=== PATIENT | female | born 1950 | race Hispanic/Latino ===

== ENCOUNTER 2018-03-23 15:15 | Emergency (ER) | payer MEDICARE, OTHER ==
[2018-03-23 15:16] VITALS: BMI 31.2
--- NOTE | 2018-03-23 16:41 | C.PDOC ---
History Of Present Illness 67 y/o female presents to the ED complaining of right arm injury, sustained today. Patient states she was hit by a door unintentionally injuring the right arm and shoulder. No LOC. Patient is right hand dominant. Now complaining of pain when moving the right arm. No other injury. Denies history of blood thinner use. Time Seen by Provider: 03/23/18 15:57 Chief Complaint (Nursing): Upper Extremity Problem/Injury History Per: Patient History/Exam Limitations: no limitations Onset/Duration Of Symptoms: Hrs Current Symptoms Are (Timing): Still Present Past Medical History Reviewed: Historical Data, Nursing Documentation, Vital Signs Vital Signs: Last Vital Signs Temp 98.0 F 03/23/18 17:48 Pulse 74 03/23/18 17:48 Resp 18 03/23/18 17:48 BP 144/72 03/23/18 17:48 Pulse Ox 98 03/23/18 17:48 - Medical History PMH: Arthritis, HTN, Parkinson's Disease Denies: Diabetes, Hepatitis, HIV, Chronic Kidney Disease, Seizures, Sexually Transmitted Disease Surgical History: Back Surgery (L5-L^ fusion) Family History: States: Unknown Family Hx - Social History Hx Tobacco Use: No Hx Alcohol Use: No Hx Substance Use: No - Immunization History Hx Tetanus Toxoid Vaccination: Yes Hx Influenza Vaccination: No Hx Pneumococcal Vaccination: No Review Of Systems Except As Marked, All Systems Reviewed And Found Negative. Musculoskeletal: Positive for: Arm Pain Physical Exam - Physical Exam Appears: Non-toxic, No Acute Distress Skin: Normal Color, Warm, Dry Head: Atraumatic, Normacephalic Eye(s): bilateral: Normal Inspection, PERRL, EOMI Neck: Normal ROM Chest: Symmetrical Cardiovascular: Rhythm Regular Respiratory: No Accessory Muscle Use Extremity: Tenderness (to right lateral shoulder and humerus), No Deformity, No Swelling, Other (Neurovascularly intact) Pulses: Left Radial: Normal, Right Radial: Normal Neurological/Psych: Oriented x3, Normal Speech, Normal Motor, Normal Sensation ED Course And Treatment O2 Sat by Pulse Oximetry: 97 (RA) Pulse Ox Interpretation: Normal Medical Decision Making Medical Decision Making: Impression: Right arm injury Plan: --Tylenol 975 mg PO --Tramadol 50 mg PO --X-ray right humerus --X-ray right shoulder Preliminary x-ray readings are negative. Patient is stable for d/c home. Advised to follow up with PMD in 1-2 days. Disposition Counseled Patient/Family Regarding: Studies Performed, Diagnosis, Need For Followup - Disposition Referrals: Melissa Kincaid MD [Staff Provider] - Disposition: HOME/ ROUTINE Disposition Time: 17:41 Condition: STABLE Additional Instructions: follow up with your doctor in 2 days call to make an appointment take medications as prescribed return to ER if symptoms worsens or progress Instructions: Contusion (DC) Forms: [facility] (Korean), General Discharge Instructions - Clinical Impression Clinical Impression: Contusion - Scribe Statement The provider has reviewed the documentation as recorded by the Scribe (Fransisca Franklin) Provider Attestation: All medical record entries made by the Scribe were at my direction and personally dictated by me. I have reviewed the chart and agree that the record accurately reflects my personal performance of the history, physical exam, medical decision making, and the department course for this patient. I have also personally directed, reviewed, and agree with the discharge instructions and disposition.
[2018-03-23 17:49] VITALS: BP 144/72; PULSE 74; RESP 18; TEMP 98
--- NOTE | 2018-03-23 18:17 | RAD ---
PROCEDURE: Radiographs of the Right Shoulder HISTORY: fall COMPARISON: No prior. FINDINGS: BONES: Normal. No fracture. JOINTS: Normal. Glenohumeral and acromioclavicular joints preserved. No osteoarthritis. SOFT TISSUES: Normal. OTHER FINDINGS: Pacemaker battery pack overlies portions of the right pedro thorax. 1 of the battery leads identified extending cephalad, the tip is not seen. IMPRESSION: No evidence of acute shoulder pathology. Battery pacemaker wire extending into the neck. This is incompletely visualized. Further evaluation therefore may be indicated.
--- NOTE | 2018-03-23 18:17 | RAD ---
PROCEDURE: Radiographs of the right humerus. HISTORY: fall COMPARISON: None. FINDINGS: BONES: Normal. No fracture or focal lesion. SOFT TISSUES: Normal. OTHER FINDINGS: None. IMPRESSION: No acute findings related to/accounting for the clinical presentation.
[2018-03-23 18:33] VITALS: O2SAT 97
== END 2018-03-23 17:56 | disposition home or self-care (01) ==
LOC: C.ER 15:15
DX: S40.011A Contusion of right shoulder, initial encounter (principal); W22.8XXA Striking against or struck by other objects, initial encounter; Y92.9 Unspecified place or not applicable

== ENCOUNTER 2019-02-15 05:28 | Emergency (ER) | payer MEDICARE, OTHER ==
[2019-02-15 05:28] VITALS: BMI 31.2
--- NOTE | 2019-02-15 05:46 | C.PDOC ---
History Of Present Illness pt with advanced parkinson and a brain stimulator for it has had increased falls. She states she had about 11 falls since yesterday, No f/c/n/v. no loc, remembers all the events. Feels very unsteady on her feet Time Seen by Provider: 02/15/19 05:46 Chief Complaint (Nursing): Weakness/Neurological Deficit History Per: Patient History/Exam Limitations: no limitations Onset/Duration Of Symptoms: Hrs Current Symptoms Are (Timing): Still Present Activity At Onset Of Symptoms: Walking Seizure Or Post-ictal Symptoms: None Possible Causative Factor(s): Other (parkinson) Fall Associated With With Symptoms: No Injury As Result Of Fall Severity: Moderate Pain Scale Rating Of: 4 Recent travel outside of the [place]: No - Symptoms Of CVA Associated Symptoms: denies: Impaired Speech, Seizure Activity, New Confusion Recent Aspirin Use: No Current Coumadin Use?: No Recent Head Trauma: No Past Medical History Reviewed: Historical Data, Nursing Documentation, Vital Signs Vital Signs: Last Vital Signs Temp 98.0 F 02/15/19 05:41 Pulse 80 02/15/19 05:41 Resp 16 02/15/19 05:41 BP 178/100 H 02/15/19 05:41 Pulse Ox 97 02/15/19 05:41 - Medical History PMH: Arthritis, HTN, Parkinson's Disease Denies: Diabetes, Hepatitis, HIV, Chronic Kidney Disease, Seizures, Sexually Transmitted Disease Surgical History: Back Surgery (L5-L^ fusion) Family History: States: No Known Family Hx - Social History Hx Tobacco Use: No Hx Alcohol Use: No Hx Substance Use: No - Immunization History Hx Tetanus Toxoid Vaccination: Yes Hx Influenza Vaccination: No Hx Pneumococcal Vaccination: No Review Of Systems Constitutional: Negative for: Fever, Chills Eyes: Negative for: Vision Change ENT: Negative for: Throat Pain Cardiovascular: Negative for: Chest Pain Respiratory: Negative for: Shortness of Breath Gastrointestinal: Negative for: Abdominal Pain Genitourinary: Negative for: Dysuria Musculoskeletal: Negative for: Back Pain Skin: Negative for: Rash Neurological: Negative for: Weakness Psych: Negative for: Anxiety Physical Exam - Physical Exam Appears: Non-toxic Skin: Warm, Dry Head: Normacephalic Eye(s): bilateral: Normal Inspection Oral Mucosa: Moist Neck: Supple Chest: Symmetrical Cardiovascular: Rhythm Regular Respiratory: No Rales, No Rhonchi, No Wheezing Gastrointestinal/Abdominal: Soft, No Tenderness, Distention Back: No CVA Tenderness Extremity: Normal ROM, Other (mild arm tremor) Extremity: Bilateral: Normal Color And Temperature Pulses: Left Dorsalis Pedis: Normal, Right Dorsalis Pedis: Normal Neurological/Psych: Oriented x3 Gait: Unable To Assess ED Course And Treatment O2 Sat by Pulse Oximetry: 97 Pulse Ox Interpretation: Normal NIHSS Stroke Scale 2 - Date/Time Evaluation Performed Date Performed: 02/15/19 Time Performed: 06:20 When Was NIHSS Performed: Baseline - How Severe is the Stroke Level of Consciousness: 0=Alert LOC to Questions: 0=Both comments correct LOC to commands: 0=Obeys both correctly Best Gaze: 0=Normal Visual: 0=No visual loss Facial: 0=Normal Motor Arm - Left: 0=No drift Motor Arm - Right: 0=No drift Motor Leg - Left: 0=No drift Motor Leg - Right: 0=No drift Limb Ataxia: 0=Absent Sensory: 0=Normal Best Language: 0=No aphasia Dysarthia: 0=Normal articulation Extinction & Inattention (Neglect): 0=Normal, no object Score: 0 Disposition Counseled Patient/Family Regarding: Studies Performed, Diagnosis - Disposition Disposition Time: 05:46 Condition: FAIR Forms: [employer] (Slovak) - Clinical Impression Clinical Impression: Falls frequently, Parkinson disease Physician Patient Turnover Patient Signed Over To: Saranya Hammond Handoff Comments: pending ct, labs , re-eval and dispo
[2019-02-15 07:00] LABS: BASO % 0.7 % (0.0-2.0); EOS # 0.1 K/uL (0.0-0.7); EOS % 1.7 % (0.0-4.0); HEMOGLOBIN 14.4 g/dL (11.0-16.0); LYMPH # 1.2 K/uL (1.0-4.3); LYMPH % 19.6 % (20.0-40.0); MEAN CELL VOLUME 90.6 fL (81.0-99.0); MEAN CORPUSCULAR HEMOGLOBIN 30.8 pg (27.0-31.0); MEAN PLATELET VOLUME 7.2 fL (7.2-11.7); MONO # 0.7 K/uL (0.0-0.8); MONO % 10.7 % (0.0-10.0); NEUT # 4.1 K/uL (1.8-7.0); NEUT % 67.3 % (50.0-75.0); RBC 4.67 Mil/uL (3.80-5.20); RED CELL DISTRIBUTION WIDTH 13.8 % (11.5-14.5); WHITE BLOOD COUNT 6.2 K/uL (4.8-10.8)
[2019-02-15 07:08] LABS: SQUAMOUS EPITHIAL 1 /hpf (0-5); URINE BACTERIA RARE (<OCC); URINE BILIRUBIN NEGATIVE (NEGATIVE); URINE BLOOD NEGATIVE (NEGATIVE); URINE CLARITY Clear (Clear); URINE COLOR Yellow (YELLOW); URINE GLUCOSE (UA) NORMAL (Normal); URINE LEUKOCYTE ESTERASE NEG Leu/uL (Negative); URINE PROTEIN NEGATIVE (NEGATIVE); URINE UROBILINOGEN NORMAL mg/dL (0.2-1.0)
[2019-02-15 07:09] LABS: INR 1.1; PROTHROMBIN TIME 11.5 SECONDS (9.7-12.2)
[2019-02-15 07:32] LABS: ALB/GLOB RATIO 1.8 (1.0-2.1); ALBUMIN 4.2 g/dL (3.5-5.0); ALT/SGPT 9 U/L (9-52); AST/SGOT 51 U/L (14-36); BLOOD UREA NITROGEN 12 mg/dL (7-17); CALCIUM 9.1 mg/dl (8.6-10.4); GFR NON-AFRICAN AMERICAN > 60
--- NOTE | 2019-02-15 07:56 | RAD ---
Date of service: 02/15/2019 PROCEDURE: CHEST RADIOGRAPH, 1 VIEW HISTORY: SOB COMPARISON: 06/30/2016 FINDINGS: LUNGS: No consolidation. Inspiration lower limits of normal. PLEURA: No pneumothorax or pleural fluid seen. CARDIOVASCULAR: There is presence of aortic atherosclerotic calcification on x-ray. Tortuosity of the thoracic aorta unfolding similar-appearing mild cardiomegaly-similar appearing. No significant appearing pulmonary venous congestion. Two pacemaker battery packs project over each mid level thorax with the its coursing cephalad over nuchal soft tissues. Correlate clinically. No leads going towards the heart appreciated. OSSEOUS STRUCTURES: Thoracic spondylosis. Right shoulder calcific rotator cuff tendinopathy and/or calcific bursitis. VISUALIZED UPPER ABDOMEN: Normal. OTHER FINDINGS: None. IMPRESSION: Interval bilateral pacemaker battery packs as referenced above. Correlate clinically. No interval consolidation. No significant appearing pulmonary venous congestion. Other findings as above.
--- NOTE | 2019-02-15 08:58 | CT ---
Date of service: 02/15/2019 PROCEDURE: CT HEAD WITHOUT CONTRAST. HISTORY: R/O Bleed COMPARISON: None available. TECHNIQUE: Axial computed tomography images were obtained through the head/brain without intravenous contrast. Radiation dose: Total exam DLP = 1147.86 mGy-cm. This CT exam was performed using one or more of the following dose reduction techniques: Automated exposure control, adjustment of the mA and/or kV according to patient size, and/or use of iterative reconstruction technique. FINDINGS: HEMORRHAGE: No intracranial hemorrhage. BRAIN: DBS leads in place. No mass effect or edema. Scattered focal lucencies in the subcortical and periventricular white matter suggestive for chronic microvascular ischemic change. Diffuse generalized parenchymal atrophy. VENTRICLES: Unremarkable. No hydrocephalus. CALVARIUM: Unremarkable. PARANASAL SINUSES: 1.4 centimeter mucosal retention cyst and or polyp in the inferior left maxillary sinus. MASTOID AIR CELLS: Unremarkable as visualized. No inflammatory changes. OTHER FINDINGS: None. IMPRESSION: No acute intracranial abnormality. DBS leads in place. Chronic microvascular ischemic change. Diffuse generalized parenchymal atrophy. Mucosal retention cyst and or polyp in the left maxillary sinus. A preliminary report was generated at 8:01 a.m. on 02/15/[address] Ashley Carpenter from [email or web address] [facility] [employer].
[2019-02-15 09:23] VITALS: BP 157/82; PULSE 78; RESP 10; O2SAT 98
[2019-02-15 10:26] VITALS: TEMP 98.7
--- NOTE | 2019-02-18 19:48 | CARD ---
APPROVED REPORT Date of service: 02/15/2019 EKG Measurement Heart [id number] <Conclusion> Sinusl rhythm Anterolateral infarct, age undetermined Abnormal ECG
== END 2019-02-15 10:42 | disposition home or self-care (01) ==
LOC: C.ER 05:28
DX: G20 Parkinson's disease (principal); Z91.81 History of falling